=== PATIENT | female | born 1965 | race Caucasian/White ===

== ENCOUNTER → 2019-05-09 10:32 | Outpatient (CLI) | payer BC, OTHER, SELFPAY ==
[2019-05-09 12:25] LABS: Hematocrit 38.3 % (37-47); Hemoglobin 13.2 g/dL (12.0-15.0); Mean Corp Hgb Conc 34.5 g/dL (32-36); Mean Corpuscular Hgb 31.1 pg (27.0-32.0); Mean Corpuscular Volume 90.1 fL (81-99); Mean Platelet Vol. 9.6 fl (6.2-12.0); Platelet Count 362 K/mm3 (150-450); RBC Distribution Width CV 12.4 % (11.6-14.6); RBC Distribution Width SD 40.4 fl (35.1-43.9); Red Blood Count 4.25 M/mm3 (4.2-5.4); White Blood Count 9.1 K/mm3 (4.4-11.0)
[2019-05-09 12:49] LABS: CRP < 2.90 mg/L (0.0-3.0); Iron 89 ug/dL (50-170)
== END ==
LOC: MTLAB 10:38
PROVIDERS: Referring Provider Internal Medicine Gastroenterology; Visit Provider Internal Medicine Gastroenterology
DX: R10.9 Unspecified abdominal pain (principal); R19.7 Diarrhea, unspecified
CPT/HCPCS: 36415; 83540; 85027; 86140

== ENCOUNTER → 2020-07-14 13:44 | Outpatient (CLI) | payer OTHER, BC, SELFPAY ==
--- NOTE | 2020-07-14 13:46 | ECHOD_ITS ---
Reason For Study: MVP Procedure This was a 2D Doppler, Color Flow transthoracic echocardiogram. Exam performed in department. Left Ventricle Normal LV size. Left ventricular systolic function is normal. The estimated ejection fraction is 65 %. No regional wall motion abnormalities noted. Right Ventricle Normal RV size. Normal systolic function. Atria Normal left atrium. Normal right atrium. Mitral Valve Normal mitral valve. Tricuspid Valve Normal tricuspid valve. Mild tricuspid valve insufficiency. Pulmonary artery systolic pressure is 26 mmHg. Aortic Valve Normal aortic valve. Trisinus/trileaflet aortic valve. Pulmonic Valve The pulmonic valve is not well visualized. Great Vessels Normal aortic root. The pulmonary artery is normal size. Normal inferior vena cava. Pericardium/Pleural No pericardial effusion. MMode/2D Measurements & Calculations LVIDd: 4.5 cm IVSd: 0.88 cm Ao root diam: 2.8 cm LVIDs: 3.1 cm LVPWd: 0.92 cm RVDd: 3.2 cm FS: 31.3 % LAV(MOD-bp): 61.6 ml LA A4 area: 20.9 cm2 LA dimension(2D): 3.9 cm LAV(MOD-bp) Indexed: 32.0 ml/m2 LAV(MOD-sp2): 57.6 ml LAV(MOD-sp4): 61.9 ml RA A4 area: 16.0 cm2 Time Measurements MV dec time: 0.20 sec Doppler Measurements & Calculations MV E max huey: 95.4 cm/sec Lat Peak E' Huey: 10.6 cm/sec Med Peak E' Huey: 11.3 cm/sec MV A max huey: 84.6 cm/sec E/E' lat: 9.0 E/E' med: 8.4 MV E/A: 1.1 Ao V2 max: 160.4 cm/sec LV V1 max: 107.5 cm/sec PA V2 max: 103.5 cm/sec Ao max P.3 mmHg LV V1 max P.6 mmHg TR max huey: 240.2 cm/sec TR max P.1 mmHg ECHO/Echo Complete Interpretation Summary Normal LV size. Left ventricular systolic function is normal. The estimated ejection fraction is 65 %. Mild tricuspid valve insufficiency. Pulmonary artery systolic pressure is 26 mmHg. Ordering Physician: Pati Dave Referring Physician: Pati Dave Performed By: Zayra Hernandez RDCS, RVT
== END ==
PROVIDERS: PCP Internal Medicine; Referring Provider Internal Medicine; Visit Provider Internal Medicine
DX: I34.1 Nonrheumatic mitral (valve) prolapse (principal)
CPT/HCPCS: 93306

== ENCOUNTER 2023-05-04 13:59 | Emergency (ER) | payer OTHER, BC, SELFPAY ==
[2023-05-04 14:01] VITALS: BP 161/94; PULSE 66; RESP 18; TEMP 36; O2SAT 100; BMI 34.7
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
[2023-05-04 14:28] VITALS: BP 143/85; PULSE 76; RESP 14; TEMP 36.2; O2SAT 99
--- OUTSIDE RECORDS SUMMARY | 2023-05-04 19:35 | XMS RPT_ITS | CCD ---
Author Name Unknown Address [address] [place] [address] Organization [facility] Care Team Providers Care Make Up Operator Helper Name Role Phone Mckenzie Dave Unavailable Unavailable Mckenzie Dave Unavailable Unavailab le Mckenzie Dave Unavailable Unavailable Unavailable Unavailable Unavailable Mckenzie Dave Unavailable Kashif Thompson Unavailable Jolie, Dr. Mckenzie John Referring Unava ilable Oberhauser, Dr. Mckenzie John Attending Unava ilable Oberhaussuman, Dr. Mckenzie John Primary Care Unava ilable Oberhaussuman, Dr. Mckenzie John Primary Care Unava ilable Oberhaussuman, Dr. Mckenzie John Referring Unava ilable Oberhaussuman, Dr. Mckenzie John Attending Unava ilable OberMckenzie che DO Primary Care Provider [phone] OberMckenzie che DO Unavailable Oberchinedu, Dr. Mckenzie John Referring Unava ilable Oberhauser, Dr. Mckenzie John Primary Care Unava ilable Oberhaussuman, Dr. Mckenzie John Attending Unava ilable Oberhauser, Dr. Mckenzie John Primary Care Unava ilable Oberhauser, Dr. Mckenzie John Attending Unava ilable Dr. Kashif Thompson Attending Unavail able Oberhaussuman, Dr. Mckenzie John Primary Care Unava ilable OBERHAUSER, MCKENZIE L Primary Care Unavailable OBERHAUSER, MCKENZIE L Referring Unavailable OBERHAUSER, MCKENZIE L Primary Care Unavailable OBERHAUSER, MCKENZIE L Attending Unavailable OBERHAUSER, MCKENZIE L Primary Care Unavailable RASHIDA ARIAS Attending Unavailable OBERHAUSER, MCKENZIE L Primary Care Unavailable OBERHAUSER, MCKENZIE L Attending Unavailable OBERHAUSER, MCKENZIE L Referring Unavailable OBERHAUSER, MCKENZIE L Primary Care Unavailable OBERHAUSER, MCKENZIE L Attending Unavailable OBERHAUSER, MCKENZIE L Primary Care Unavailable RASHIDA ARIAS Attending Unavailable OBERHAUSER, MCKENZIE L Primary Care Unavailable NEWRASHIDA ACUNA Attending Unavailable OBERHAUSER, MCKENZIE L Primary Care Unavailable Allergies Allergy Classification Reported Allergen(s) Allergy Type Date of Onset Reaction(s) Facility Opioid Agonists (1 source) Propoxyphene; Translations: [Darvon CAPS] Drug Allergy [facility] Work Phone: Proton Pump Inhibitors (1 source) lansoprazole; Translations: [Prevacid] Drug Allergy [facility] Work Phone: (16 sources) lansoprazole; Translations: [Prevacid] Drug Allergy [facility] Work Phone: (16 sources) Propoxyphene; Translations: [Darvon CAPS] Drug Allergy [facility] Work Phone: (8 sources) Propoxyphene; Translations: [PROPOXYPHENE] Drug Allergy 06-15-2022 Unknown [facility] (7 sources) lansoprazole; Translations: [LANSOPRAZOLE] Drug Allergy 06-15-2022 Unknown [facility] Medications Current Medications Medication Drug Class(es) Dates Sig (Normalized) Sig (Original) acetaminophen 325 mg / HYDROcodone bitartrate 5 mg oral tablet (1 source) Opioid Agonist Start: 07-13-2022 End: 07-18-2022 take 1 tablet by mouth every six hours for pain HYDROcodone-acetam inophen ([place]) 5-325 mg tablet Indications: Cervical strain, acute, initial encounter Take 1 tablet by mouth every 6 hours if needed for severe pain (7 - 10) for up to 5 days. 20 tablet 0 07/13/2022 07/18/2022 Active atorvastatin 20 mg oral tablet (20 sources) HMG-CoA Reductase Inhibitor Start: 10-09-2022 atorvastatin (Lipitor) 20 mg tablet Completed/Discontinued Medications Medication Drug Class(es) Dates Sig (Normalized) Sig (Original) azithromycin 250 mg oral tablet (3 sources) Macrolide Antimicrobial Start: 02-24-2021 Azithromycin 250 MG Oral Tablet TAKE DIRECTED PER PACKAGE INSTRUCTIONS. Quantity: 6 Refills: 0 Ordered: 24-Feb-2021 Rashida Arias PA-C Start : 24-Feb-2021 Active Problems Active Problems Problem Classification Problem Date Documented Da te Episodic/Chronic Disorders of lipid metabolism (20 sources) Hyperlipidemia; Translations: [Other and unspecified hyperlipidemia] Onset: 06-14-2022 06-14-2022 Chronic Nonmalignant breast conditions (1 source) Diffuse cystic mastopathy of left breast; Translations: [Diffuse cystic mastopathy of left breast] Onset: 12-15-2021 Chronic Other circulatory disease (2 sources) H/O: heart disorder; Translations: [History of mitral valve prolapse] Episodic Other injuries and conditions due to external causes (14 sources) Injury of knee; Translations: [Knee, leg, ankle, and foot injury] Episodic Other nervous system disorders (2 sources) Other chronic pain; Translations: [Other chronic pain] Onset: 10-12-2022 Chronic Other nutritional; endocrine; and metabolic disorders (5 sources) Obesity; Translations: [Obesity, unspecified] Chronic Other nutritional; endocrine; and metabolic disorders (5 sources) Body mass index 30+ - obesity; Translations: [Body Mass Index 36.0-36.9, adult] Chronic Other nutritional; endocrine; and metabolic disorders (17 sources) H/O: endocrine disorder; Translations: [Personal history of other endocrine, metabolic, and immunity disorders] Episodic Spondylosis; intervertebral disc disorders; other back problems (20 sources) Sciatica; Translations: [Sciatica] Onset: 06-14-2022 Resolved: 06-14-2022 06-15-2022 Episodic Unclassified (2 sources) OVER USE OF MUCINEX DM 12HR 02-24-2022 Past or Other Problems Problem Classification Problem Date Documented Da te Episodic/Chronic Allergic reactions (3 sources) Contact dermatitis due to poison delfin; Translations: [Allergic contact dermatitis due to plants, except food] Onset: 10-26-2022 10-26-2022 Episodic Diabetes mellitus without complication (12 sources) Hyperglycemia; Translations: [Impaired fasting glucose] Onset: 06-14-2022 Resolved: 06-14-2022 06-14-2022 Episodic Heart valve disorders (19 sources) Mitral valve prolapse; Translations: [Mitral valve disorders] Onset: 06-14-2022 Resolved: 06-14-2022 06-14-2022 Chronic Mycoses (19 sources) Mycosis; Translations: [Candidiasis of unspecified site] Onset: 06-14-2022 Resolved: 06-14-2022 06-14-2022 Episodic Nonmalignant breast conditions (1 source) Unspecified lump in the left breast, unspecified quadrant; Translations: [Unspecified lump in the left breast, unspecified quadrant] Onset: 12-03-2021 Episodic Other and unspecified benign neoplasm (1 source) Benign neoplasm of left breast; Translations: [Benign neoplasm of left breast] Onset: 12-15-2021 Episodic Other endocrine disorders (20 sources) Disorder of endocrine system; Translations: [Unspecified endocrine disorder] Onset: 06-14-2022 06-14-2022 Episodic Other endocrine disorders (10 sources) Decreased estradiol level; Translations: [Other specified endocrine disorders] Onset: 06-14-2022 Resolved: 06-14-2022 06-14-2022 Episodic Other endocrine disorders (6 sources) Hormone level - finding; Translations: [Hormone deficiency] Onset: 06-14-2022 Resolved: 06-14-2022 06-14-2022 Episodic Other injuries and conditions due to external causes (4 sources) Injury of right knee; Translations: [Unspecified injury of right lower leg, initial encounter] Onset: 06-14-2022 Resolved: 06-14-2022 06-14-2022 Episodic Other non-traumatic joint disorders (11 sources) Pain in right knee; Translations: [Right knee pain] Onset: 06-14-2022 Resolved: 06-14-2022 06-14-2022 Episodic Other non-traumatic joint disorders (11 sources) Effusion of right knee joint; Translations: [Effusion of joint, lower leg] Onset: 06-14-2022 Resolved: 06-14-2022 06-14-2022 Episodic Other non-traumatic joint disorders (1 source) Pain in right knee; Translations: [Pain in right knee] Onset: 06-14-2022 Resolved: 06-14-2022 06-14-2022 Episodic Other screening for suspected conditions (not mental disorders or infectious disease) (20 sources) Patient encounter status; Translations: [Breast screening, unspecified] Onset: 12-03-2021 Resolved: 06-14-2022 06-14-2022 Episodic Other upper respiratory infections (19 sources) Upper respiratory infection; Translations: [Acute upper respiratory infections of unspecified site] Onset: 06-14-2022 Resolved: 06-14-2022 06-14-2022 Episodic Poisoning by other medications and drugs (3 sources) Poisoning by unspecified drug or medicinal substance; Translations: [Poisoning by expectorants, accidental (unintentional), initial encounter] Onset: 02-24-2022 02-24-2022 Episodic Sprains and strains (3 sources) Strain of neck muscle; Translations: [Strain of muscle, fascia and tendon at neck level, initial encounter] Onset: 07-13-2022 07-13-2022 Episodic Unclassified (2 sources) Patient encounter status; Translations: [Screening for breast cancer] Unclassified (4 sources) Onset: 07-13-2022 Resolved: 10-26-2022 07-13-2022 Unclassified (2 sources) Hormone level - finding; Translations: [Hormone deficiency] Onset: 06-14-2022 Resolved: 06-14-2022 06-14-2022 Unclassified (1 source) Low back pain, unspecified; Translations: [Low back pain, unspecified] Onset: 04-14-2023 Results Test Name Value Interpretation Reference Range Facil ity Vital Signs Date Time Vital Sign Value Performing Clinician Facility 04-14-2023 15:17-0500 Body height 161.3 cm Mckenzie Dave [employer] Work Phone: [facility] 04-14-2023 15:17-0500 Body mass index (BMI) [Ratio] 34.52 kg/m2 Mckenzie Dave DO Work Phone: [facility] 04-14-2023 15:17-0500 Body weight 89.81 kg Mckenzie Oberhauser DO Work Phone: [facility] 04-14-2023 15:17-0500 Diastolic blood pressure 78 mm[Hg] Mckenzie Oberhauser DO Work Phone: [facility] 04-14-2023 15:17-0500 Heart rate 68 /min Mckenzie Oberhauser DO Work Phone: [facility] 04-14-2023 15:17-0500 Systolic blood pressure 139 mm[Hg] Mckenzie Oberhauser DO Work Phone: [facility] 10-26-2022 16:50-0400 Body height 161.3 cm Rashida Newbill PA-C Work Phone: [facility] 10-26-2022 16:50-0400 Body mass index (BMI) [Ratio] 32.87 kg/m2 Rashida Newbill PA-C Work Phone: [facility] 10-26-2022 16:50-0400 Body temperature 98.01 [degF] Rashida Newbill PA-C Work Phone: [facility] 10-26-2022 16:50-0400 Body weight 85.5 kg Rashida Newbill PA-C Work Phone: [facility] 10-26-2022 16:50-0400 Diastolic blood pressure 74 mm[Hg] Rashida Newbill PA-C Work Phone: [facility] 10-26-2022 16:50-0400 Heart rate 60 /min Rashida Newbill PA-C Work Phone: [facility] 10-26-2022 16:50-0400 Systolic blood pressure 131 mm[Hg] Rashida Newbill PA-C Work Phone: [facility] 10-12-2022 14:39-0400 Body height 161.3 cm Mckenzie Oberhauser DO Work Phone: [facility] 10-12-2022 14:39-0400 Body mass index (BMI) [Ratio] 32.95 kg/m2 Mckenzie Oberhauser DO Work Phone: [facility] 10-12-2022 14:39-0400 Body weight 85.73 kg Mckenzie Oberhauser DO Work Phone: [facility] 10-12-2022 14:39-0400 Diastolic blood pressure 77 mm[Hg] Mckenzie Oberhauser DO Work Phone: [facility] 10-12-2022 14:39-0400 Heart rate 60 /min Mckenzie Oberhauser DO Work Phone: [facility] 10-12-2022 14:39-0400 Systolic blood pressure 135 mm[Hg] Mckenzie Oberhauser DO Work Phone: [phone] [place] [address] 07-13-2022 13:35-0400 Body height 160 cm Rashida Newbill PA-C Work Phone: [phone] [place] [address] 07-13-2022 13:35-0400 Body mass index (BMI) [Ratio] 35.06 kg/m2 Rashida Newbill PA-C Work Phone: [facility] 07-13-2022 13:35-0400 Body weight 89.77 kg Rashida Newbill PA-C Work Phone: [facility] 07-13-2022 13:35-0400 Diastolic blood pressure 86 mm[Hg] Rashida Newbill PA-C Work Phone: [facility] 07-13-2022 13:35-0400 Heart rate 69 /min Rashida Newbill PA-C Work Phone: [facility] 07-13-2022 13:35-0400 Systolic blood pressure 137 mm[Hg] Rashida Newbill PA-C Work Phone: [phone] [place] [address] 03-30-2022 16:11-0500 Body height 160.02 cm Mckenzie L Oberhauser Work Phone: [facility] Work Phone: 03-30-2022 16:11-0500 Body mass index (BMI) [Ratio] 35.43 kg/m2 Mckenzie L Oberhauser Work Phone: [facility] Work Phone: 03-30-2022 16:11-0500 Body surface area Derived from formula 1.93 m2 Mckenzie L Oberhauser Work Phone: [facility] Work Phone: 03-30-2022 16:11-0500 Body weight 90.72 kg Mckenzie L Oberhauser Work Phone: [facility] Work Phone: 03-30-2022 16:11-0500 Diastolic blood pressure 73 mm[Hg] Mckenzie L Oberhauser Work Phone: [facility] Work Phone: 03-30-2022 16:11-0500 Heart rate 63 /min Mckenzie L Oberhauser Work Phone: [facility] Work Phone: 03-30-2022 16:11-0500 Systolic blood pressure 134 mm[Hg] Mckenzie L Oberhauser Work Phone: [facility] Work Phone: 11-18-2021 13:26-0400 Body height 160.02 cm Mckenzie L Oberhauser Work Phone: [facility] Work Phone: 11-18-2021 13:26-0400 Body mass index (BMI) [Ratio] 35.78 kg/m2 Mckenzie L Oberhauser Work Phone: [facility] Work Phone: 11-18-2021 13:26-0400 Body surface area Derived from formula 1.94 m2 Mckenzie L Oberhauser Work Phone: [facility] Work Phone: 11-18-2021 13:26-0400 Body weight 91.63 kg Mckenzie L Oberhauser Work Phone: [facility] Work Phone: 11-18-2021 13:26-0400 Diastolic blood pressure 73 mm[Hg] Mckenzie L Oberhauser Work Phone: [facility] Work Phone: 11-18-2021 13:26-0400 Heart rate 73 /min Mckenzie L Oberhauser Work Phone: [facility] Work Phone: 11-18-2021 13:26-0400 Systolic blood pressure 136 mm[Hg] Mckenzie L Oberhauser Work Phone: [facility] Work Phone: 02-24-2021 13:02-0500 Body height 160.02 cm Mckenzie L Oberhauser Work Phone: [facility] Work Phone: 02-24-2021 13:02-0500 Body mass index (BMI) [Ratio] 34.01 kg/m2 Mckenzie L Oberhauser Work Phone: [facility] Work Phone: 02-24-2021 13:02-0500 Body surface area Derived from formula 1.9 m2 Mckenzie L Oberhauser Work Phone: [facility] Work Phone: 02-24-2021 13:02-0500 Body temperature 97.8 [degF] Mckenzie L Oberhauser Work Phone: [facility] Work Phone: 02-24-2021 13:02-0500 Body weight 87.09 kg Mckenzie L Oberhauser Work Phone: [facility] Work Phone: 02-24-2021 13:02-0500 Diastolic blood pressure 79 mm[Hg] Mckenzie L Oberhauser Work Phone: [facility] Work Phone: 02-24-2021 13:02-0500 Heart rate 86 /min Mckenzie Claudio Oberhauser Work Phone: [facility] Work Phone: 02-24-2021 13:02-0500 SaO2% (BldA) [Mass fraction] 97 % Mckenzie Claudio Oberhauser Work Phone: [facility] Work Phone: 02-24-2021 13:02-0500 Systolic blood pressure 134 mm[Hg] Mckenzie L Oberhauser Work Phone: [facility] Work Phone: 02-11-2021 14:58-0500 Body height 160.02 cm Mckenzie Claudio Oberhauser Work Phone: [facility] [address] Work Phone: 02-11-2021 14:58-0500 Body mass index (BMI) [Ratio] 34.76 kg/m2 Mckenzie L Oberhauser Work Phone: [facility] [address] Work Phone: 02-11-2021 14:58-0500 Body surface area Derived from formula 1.92 m2 Mckenzie L Oberhauser Work Phone: [facility] [address] Work Phone: 02-11-2021 14:58-0500 Body temperature 97.6 [degF] Mckenzie L Oberhauser Work Phone: [facility] [address] Work Phone: 02-11-2021 14:58-0500 Body weight 89.02 kg Mckenzie L Oberhauser Work Phone: [facility] [address] Work Phone: 01-06-2021 14:46-0500 Body height 160.02 cm Mckenzie L Oberhauser Work Phone: [facility] Work Phone: 01-06-2021 14:46-0500 Body mass index (BMI) [Ratio] 34.19 kg/m2 Mckenzie L Oberhauser Work Phone: [facility] Work Phone: 01-06-2021 14:46-0500 Body surface area Derived from formula 1.9 m2 Mckenzie L Oberhauser Work Phone: [facility] Work Phone: 01-06-2021 14:46-0500 Body temperature 97.5 [degF] Mckenzie L Oberhauser Work Phone: [facility] Work Phone: 01-06-2021 14:46-0500 Body weight 87.54 kg Mckenzie L Oberhauser Work Phone: [facility] Work Phone: 01-06-2021 14:46-0500 Diastolic blood pressure 85 mm[Hg] Mckenzie L Oberhauser Work Phone: [facility] Work Phone: 01-06-2021 14:46-0500 Heart rate 88 /min Mckenzie L Oberhauser Work Phone: [facility] Work Phone: 01-06-2021 14:46-0500 Systolic blood pressure 133 mm[Hg] Mckenzie L Oberhauser Work Phone: [facility] Work Phone: 12-08-2020 15:40-0400 Body height 160.02 cm Mckenzie L Oberhauser Work Phone: [facility] Work Phone: 12-08-2020 15:40-0400 Body mass index (BMI) [Ratio] 34.61 kg/m2 Mckenzie L Oberhauser Work Phone: [facility] Work Phone: 12-08-2020 15:40-0400 Body surface area Derived from formula 1.91 m2 Mckenzie L Oberhauser Work Phone: [facility] Work Phone: 12-08-2020 15:40-0400 Body temperature 96.6 [degF] Mckenzie L Oberhauser Work Phone: [facility] Work Phone: 12-08-2020 15:40-0400 Body weight 88.63 kg Mckenzie L Oberhauser Work Phone: [facility] Work Phone: 12-08-2020 15:40-0400 Diastolic blood pressure 81 mm[Hg] Mckenzie L Oberhauser Work Phone: [facility] Work Phone: 12-08-2020 15:40-0400 Heart rate 84 /min Mckenzie L Oberhauser Work Phone: [facility] Work Phone: 12-08-2020 15:40-0400 Systolic blood pressure 137 mm[Hg] Mckenzie L Oberhauser Work Phone: [facility] Work Phone: 08-06-2020 15:14-0400 Body height 160.02 cm Mckenzie L Oberhauser Work Phone: [facility] Work Phone: 08-06-2020 15:14-0400 Body mass index (BMI) [Ratio] 35.25 kg/m2 Mckenzie L Oberhauser Work Phone: [facility] Work Phone: 08-06-2020 15:14-0400 Body surface area Derived from formula 1.93 m2 Mckenzie L Oberhauser Work Phone: [facility] Work Phone: 08-06-2020 15:14-0400 Body temperature 98 [degF] Mckenzie L Oberhauser Work Phone: [facility] Work Phone: 08-06-2020 15:14-0400 Body weight 90.27 kg Mckenzie L Oberhauser Work Phone: [facility] Work Phone: 08-06-2020 15:14-0400 Diastolic blood pressure 74 mm[Hg] Mckenzie L Oberhauser Work Phone: [facility] Work Phone: 08-06-2020 15:14-0400 Systolic blood pressure 126 mm[Hg] Mckenzie L Oberhauser Work Phone: [facility] Work Phone: 01-28-2020 15:28-0500 BMI (Body Mass Index) 33.83 kg/m2 Mckenzie Oberhauser [facility] Work Phone: 01-28-2020 15:28-0500 Body Temperature 97.6 [degF] Mckenzieсветлана Dave [facility] Work Phone: Encounters Encounter Date Encounter Type Care Provider Facility Start: 04-14-2023 End: 04-14-2023 [facility] Start: 04-14-2023 End: 04-14-2023 Office outpatient visit 25 minutes Mckenzie González Jolie DO Work Phone: [facility] Procedures Date Procedure Procedure Detail Performing Clinician Start: 04-14-2023 FOLLOW UP IN FAMILY MEDICINE MCKENZIE DAVE Start: 12-15-2022 BI MAMMO BILATERAL SCREENING TOMOSYNTHESIS MCKENZIEСветлана DAVE Start: 12-15-2022 Mammography Mckenzieсветлана che DO Work Phone: Start: 10-11-2022 Comprehensive metabo lic 2000 panel - Serum or Plasma MCKENZIEСветлана DAVE Start: 10-11-2022 Lipid panel MCKENZIEСветлана HAGEN CHINEDU Start: 10-11-2022 Lipid 1996 panel - S jenny or Plasma Mckenzieсветлана Dave DO Work Phone: Start: 03-09-2022 Lipid 1996 panel - S jenny or Plasma Rashida Tobill PA-C Work Phone: Start: 12-03-2021 Mammography Rashida Michaels ll PA-C Work Phone: Start: 07-02-2020 Microscopic observat ion [Identifier] in Cervix by Cyto stain Mckenzieсветлана Dave DO Work Phone: Start: 01-28-2020 Comprehensive metabo lic 2000 panel Mckenzieсветлана Hagenvidhisuamn Start: 01-28-2020 Lipid panel Mckenzie Xiaosuman martinezchinedu Start: 01-28-2020 MG Breast screening Diane an Oberhauser History of No histor y of surgery Mckenzie Dave No history of surgery Mckenzie Dave Work Phone: Plan of Treatment Date Care Activity Detail Author Start: 10-12-2027 Lipid panel Lipid Panel [facility] Start: 03-09-2027 Lipid panel Lipid Panel [facility] Start: 03-09-2025 Diabetes mellitus screening Diabetes Screening [facility] Start: 12-16-2023 Screening for malign ant neoplasm of breast Mammogram [facility] Start: 10-13-2023 End: 10-13-2023 Patient encounter procedure 10/13/2023 1:00 PM EDT Office Visit [facility] [address] [place] [id number] Mckenzie Dave DO [address] [facility] [place] [address] [facility] Start: 07-03-2023 Screening for malign ant neoplasm of cervix [facility] Start: 05-04-2023 End: 05-04-2023 ambulatory 05/04/2023 3:30 PM EST Evaluation [facility] [address] [place] [address] Dread Azevedo, PT [address] [facility] [place] [address] [facility] Start: 04-14-2023 End: 04-14-2023 Patient encounter procedure 04/14/2023 3:20 PM EST Office Visit [facility] [address] [place] [id number] Mckenzie Dave DO [address] [facility] [place] [address] [facility] Start: 04-14-2023 End: 04-14-2024 XR Lumbar spine 2 or 3 Views XR lumbar spine 2-3 views Imaging Routine Lumbar back pain Expected: 04/14/2023, Expires: 04/14/2024 [facility] Service Area Work Phone: Payers Date Payer Category Payer Private Health Insurance [id number] 2021 Unknown 2021 Unknown [id number] 2019 Private Health Insurance [id number] 2019 Private Health Insurance [id number] 1964 Unknown [id number] 2.16. [id number] 1964 Unknown [id number] 2.16. [id number] 1964 Unknown [id number] 2.16.8 [id number] 1964 Unknown [id number] 2.16.8 [id number] 1964 Unknown [id number] 2.16.8 [id number] 1964 Unknown [id number] 2.16.84 [id number] 1964 Unknown [id number] 2.16.84 [id number] 1964 Unknown [id number] 2.16.8 [id number] 1964 Unknown [id number] 2.16.8 [id number] 1964 Unknown [id number] 2.16.8 [id number] 1964 Unknown [id number] 2.16.84 [id number] 1964 Unknown [id number] 2.16.84 [id number] 1964 Unknown [id number] 2.16.84 [id number] Social History Date Type Detail Facility Start: 06-15-2022 End: 10-26-2022 Daily caffeine consumption, 2-3 servings a day Daily caffeine consumption, 2-3 servings a day [facility] Tobacco smoking consumption unknown [facility] Start: 06-15-2022 Tobacco smoking status NHIS Never smoked tobacco [facility] Work Phone: Start: 06-15-2022 Tobacco use and exposure Smokeless tobacco non-user [facility] Work Phone: Start: 07-13-2022 End: 04-14-2023 Alcohol intake Ex-drinker (finding) [facility] Work Phone: Start: 06-15-2022 End: 10-26-2022 Tobacco use panel [facility] Start: 1965 Sex Assigned At Not on file [facility] Work Phone: Start: 07-03-2022 End: 04-14-2023 Exposure to SARS-CoV-2 (event) Not sure [facility] NEGATED: Highlighted row - - [facility] Work Phone: Functional Status Date Assessment Result Facility NEGATED: Highlighted row Functional performance Functional status health issues are not documented Disease [facility] Work Phone: Mental Status Date Assessment Result Facility NEGATED: Highlighted row Cognitive function [Interpretation] Cognitive status health issues are not documented Disease [facility] Work Phone: Clinical Notes 11-24-2020 to 04-14-2023 Mckenzie Dave, DO - 04/14/2023 3:20 PM Daily Arias PA-C - 10/26/2022 4:50 PM Darwin Dave, DO - 10/12/2022 2:40 PM Mayank Arias PA-C - 07/13/2022 1:30 PM EDT Note Date & Type Note Facility 04-14-2023 History of Present illness Narrative Subjective Patient ID: Carleen Hernandez is a 58 y.o. female who presents for Follow-up (6 month), Obesity (Pt expressed several times how unhappy she is with her weight during intake ), and Back Pain (Including a lot of stiffness /Unaware of injury /Tingling in hands/Started in February ). Back Pain Pertinent negatives include no chest pain, numbness or weakness. Pt is here today for 6 mo follow up. Pt reports that she is still working on her weight. Has started going to the gym and walking on treadmill. Having some back pain. She is having numbess dwn her legs. No fall. Review of Systems Constitutional: Negative for activity change, appetite change, chills and fatigue. HENT: Negative for congestion, postnasal drip, sinus pressure, sinus pain and sore throat. Respiratory: Negative for cough, shortness of breath and wheezing. Cardiovascular: Negative for chest pain and leg swelling. Gastrointestinal: Negative for abdominal distention, diarrhea, nausea and vomiting. Musculoskeletal: Positive for back pain. Neurological: Negative for weakness and numbness. Objective BP 139/78 Pulse 68 Ht 1.613 m (5' 3.5 ) Wt 89.8 kg (198 lb) BMI 34.52 kg/m Physical Exam Constitutional: General: She is not in acute distress. Appearance: Normal appearance. HENT: Head: Normocephalic. Nose: Nose normal. Mouth/Throat: Mouth: Mucous membranes are dry. Pharynx: No oropharyngeal exudate. Eyes: General: Right eye: No discharge. Left eye: No discharge. Extraocular Movements: Extraocular movements intact. Pupils: Pupils are equal, round, and reactive to light. Cardiovascular: Rate and Rhythm: Normal rate and regular rhythm. Heart sounds: No murmur heard. No gallop. Pulmonary: Effort: Pulmonary effort is normal. No respiratory distress. Breath sounds: Normal breath sounds. No wheezing. Musculoskeletal: General: Tenderness present. No swelling. Normal range of motion. Comments: +tenderness over thoracic and lumbar paraspinals Skin: General: Skin is warm and dry. Coloration: Skin is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 of breast: Paternal Aunt(V16.3, Z80.3) Status:Active Family history of tremor: Mo ther(V17.2, Z82.0) Status:Active Healthy adult: Sister, Broth er Status:Active Unknown Family Member Name Dates Details No pertinent family history: Other(V49.89, Z78.9) Status:Active Family history of type 2 karmen betes mellitus: Maternal Grandmother(V18.0, Z83.3) Status:Active Malignant neoplasm of nipple of left breast in female, estrogen receptor negative: Paternal Aunt Status:Active Family history of malignant neoplasm of breast: Paternal Aunt(V16.3, Z80.3) Status:Active Family history of tremor: Mo ther(V17.2, Z82.0) Status:Active Healthy adult: Sister, Broth er Status:Active Chief Complaint * Patient here today for right knee discomfort x 2 weeks. * Patient states she injured it at home while stepping off a step having a sharp sensation radiating from the right hip down the right leg. * Patient states the pain is increased with standing having a pressure sensation. * Patient states today she has noticed the giving out on here while walking. * Patient has seen a chiropractor (Dr. Lea) and has been giving stretching exercises. * Patient states she has been taking Advil/ Tylenol, icing the leg and using a massager she has at home. * Patient states she has not had an x-ray of her knee. * 55 y/o female presents for 6 month f/u * Pt unsure if she would like to see Ortho for her RT knee * She states she saw Rashida Arias and was given a brace * She states she is still having issues with her knee, unsure where to go from here * She does take muscle relaxers at night before bed * 55 y/o female presents for 6 month f/u * Pt unsure if she would like to see Ortho for her RT knee * She states she saw Rashida Arias and was given a brace * She states she is still having issues with her knee, unsure where to go from here * She does take muscle relaxers at night before bed PT HERE FOR RIGHT KNEE PAIN. STATES PAIN FOR THE PAST 2 MTHS SINCE SHE HURT LOWER BACK. SWELLING AND PRESSURE IN THE KNEE. PAIN COMES AND GOES. HAS BEEN WEARING A WRAP. XRAYS DONE. REFERRED BY RASHIDA ARIAS.Patient here today with complaints of head & chest congestion, frontal MARTINEZ, increased temp, bodychills and cough x 4 days.* 56 y/o female presents for 10 month f/u and to discuss high cholesterol * Pt states she is suppose to be on the Atorvastatin MG so she was cutting her 20's in half * 56 y/o female presents for 3-4 month f/u * Denies needing medication RF's * Pt states she has something going on in her throat since her last Covid diagnoses 02/20/2022 Summary Purpose Advance Directives No Advanced Directives Records FoundNo Advanced Directives Records FoundNo Advanced Directives Records FoundNo Advanced Directives Records FoundNo Advanced Directives Records FoundNo Advanced Directives Records Found Additional Source Comments <item> Privacy Markings (unrecogniz ed section and content) Section Author: Mary Alice Kaba PROHIBITION ON REDISCLOSURE OF CONFIDENTIAL INFORMATION This notice accompanies a disclosure of information concerning a client made to you with the consent of such client. INFORMATION SOURCE (unrecogn ized section and content) DATE CREATED AUTHOR AUTHOR'S ORGANIZ ATION 03/31/2022 [employer] DATE CREATED AUTHOR AUTHOR'S ORGANIZ ATION 10/11/[address] [facility] DATE CREATED AUTHOR AUTHOR'S ORGANIZ ATION 10/16/2022 [facility] DATE CREATED AUTHOR AUTHOR'S ORGANIZ ATION 12/20/2022 [facility] DATE CREATED AUTHOR AUTHOR'S ORGANIZ ATION 04/16/2023 [facility] Reason for Visit (unrecogniz ed section and content) Reason Comments Follow-up 6 month Reason Comments Rash Skin irritation with itching of arms and legs x 10 days, patient states has been doing yard work. Insect Bite ? Insect bite of rig ht calf x 10 days with redness and itching. Reason Comments Follow-up 6 month Obesity Pt expressed several times how unhappy she is with her weight during intake Back Pain Including a lot of s tiffness Unaware of injury Tingling in handsStarted in February Specialty Diagnoses / Procedures Referred By Contnader t Referred To Contact Primary Care Procedures Follow Up In Primary Care - Established Mckenzie Dave DO [address] [facility] [place] [address] Referral ID Status Reason Start Date Expiration Date Visits Re quested Visits Authorized [id number] Closed 10/12/2022 04/10/2023 1 1 Care Teams (unrecognized sec tion and content) Make Up Operator Helper Relationship Specialty Start Date End Date Mckenzie Dave DO [address] [facility] [place] [address] PCP - General 01/28/20 Mckenzie Dave DO [address] [facility] [place] [address] PCP - Juan C SCHNEIDER PCP 02/28/22 Make Up Operator Helper Relationship Specialty Start Date End Date Mckenzie Dave DO [address] [facility] [place] [address] PCP - General 01/28/20 Mckenzie Dave, DO [address] [facility] [place] [address] PCP - [employer] PCP 02/28/22 Make Up Operator Helper Relationship Specialty Start Date End Date Mckenzie Dave DO [address] [facility] [place] [address] PCP - General 01/28/20 Mckenzie Dave DO [address] [place] [address] PCP - [employer] PCP 02/28/22 FOR RECORDS PERTAINING TO PATIENTS WHO ARE OR HAVE BEEN ENROLLED IN A CHEMICAL DEPENDENCY/SUBSTANCEABUSE PROGRAM, SOME INFORMATION MAY BE OMITTED. This clinical summary was aggregated from multiple sources. Caution should be exercised in using it in the provision of clinical care. This summary normalizes information from multiple sources, and as a consequence, information in this document may materially change the coding, format and clinical context of patient data. In addition, data may be omitted in some cases. CLINICAL DECISIONS SHOULD BE BASED ON THE PRIMARY CLINICAL RECORDS. [facility] [employer] [facility] provides no warranty or guarantee of the accuracy or completeness of information in this document.
== END 2023-05-04 14:40 | disposition home or self-care (01) ==
LOC: ED 14:31
PROVIDERS: Emergency Provider Emergency Medicine; PCP Internal Medicine; Visit Provider Emergency Medicine
DX: S16.1XXA Strain of muscle, fascia and tendon at neck level, initial encounter (principal); E78.00 Pure hypercholesterolemia, unspecified; V59.49XA Driver of pick-up truck or van injured in collision with other motor vehicles in traffic accident, initial encounter
CPT/HCPCS: 99282